=== PATIENT | male | born 1970 | race Hispanic/Latino ===

== ENCOUNTER 2018-05-17 10:15 | Emergency (ER) | payer OTHER ==
[~2018-05-17] VITALS: Ht 152.4 cm; Wt 77.5 kg
[2018-05-17] MEDS ORDERED: KETOROLAC TROME10 MG PO (12:01)
== END 2018-05-17 12:17 | disposition home or self-care (01) ==
LOC: ED 10:15
DX: S60.222A Contusion of left hand, initial encounter (principal); S50.12XA Contusion of left forearm, initial encounter; F17.200 Nicotine dependence, unspecified, uncomplicated; W19.XXXA Unspecified fall, initial encounter; Y99.0 Civilian activity done for income or pay
CPT/HCPCS: 73080; 73130; 99283-25

== ENCOUNTER 2023-11-29 07:08 | Emergency (ER) | payer OTHER ==
[~2023-11-29] VITALS: Ht 152.4 cm; Wt 180.0 kg
[~2023-11-29 07:08] MED LIST: KETOROLAC TROME10 MG PO
[2023-11-29] MEDS ORDERED: HYDROCODONE/ACETA 5/325 TAB PO ONE (07:30)
[2023-11-29] MEDS ORDERED: IBUPROFEN 600 MG TAB PO ONE (07:30)
[2023-11-29] MEDS ORDERED: DIPHTH,PERTUSS(ACELL),TET VAC 0.5 ML SYRINGE IM ONE (07:45)
[2023-11-29 08:08] VITALS: BP 144/95
== END 2023-11-29 08:09 | disposition home or self-care (01) ==
LOC: ED 07:08
DX: S61.042A Puncture wound with foreign body of left thumb without damage to nail, initial encounter (principal); W29.4XXA Contact with nail gun, initial encounter; F17.200 Nicotine dependence, unspecified, uncomplicated; Z23 Encounter for immunization
CPT/HCPCS: 73140; 90471; 90715; 99283-25; A9270